=== PATIENT | male | born 1965 | race Caucasian/White ===

== ENCOUNTER 2016-11-24 20:44 | Emergency (ER) | payer SELFPAY ==
--- NOTE | 2016-11-24 21:19 | RADIOLOGY REPORT (SQ) ---
EXAM DESCRIPTION: KNEE RIGHT 4 VIEWS COMPLETED DATE/TIME: 11/24/2016 9:10 pm REASON FOR STUDY: pain, inability to bend COMPARISON: None. NUMBER OF VIEWS: Four views. TECHNIQUE: AP, lateral, and both oblique radiographic images acquired of the right knee. LIMITATIONS: None. FINDINGS: MINERALIZATION: Normal. BONES: No acute fracture or dislocation. No worrisome bone lesions. Patella [place]. JOINT: No significant joint effusion. SOFT TISSUES: Apparent thickening of the patellar tendon. OTHER: No other significant finding. IMPRESSION: PATELLA SAYRA WITH APPARENT THICKENING OF THE PATELLAR TENDON COULD BE SECONDARY TO ACUTE OR CHRONIC TEAR. CORRELATE WITH PHYSICAL EXAM. NO FRACTURE. TECHNICAL DOCUMENTATION: JOB ID: [id number] [employer]- All Rights Reserved
[2016-11-24] MEDS ORDERED: HYDROCODONE/ACETAMINOPHEN 5-325 MG 6 TAB/DSPK PO PRN (21:55)
[2016-11-24] MEDS ORDERED: HYDROCODONE/ACETAMINOPHEN 5-325 MG TABLET PO ONE (21:55)
--- NOTE | 2016-11-24 21:58 | ER Document Report ---
ED Extremity Problem, Lower - General Chief Complaint: Knee Pain Stated Complaint: KNEE PAIN Time Seen by Provider: 11/24/16 21:40 Information source: Patient - HPI Patient complains to provider of: Pain, Swelling Location: Knee Occurred: Yesterday Onset/Duration: Gradual Quality of pain: Achy Severity: Moderate Pain Level: 4 Exacerbated by: Movement Relieved by: Nothing Notes: Patient is a 51-year-old male presenting to the emergency room today complaining of right knee pain, symptoms have been going on for the past 2-3 days, he has a history of injury to this knee several years prior while playing [id number], and reports some arthritis, he denies any new injury, although at work the other day he did get a large delivery and was going up and down stairs multiple times throughout the day, symptoms started shortly thereafter, he denies any calf pain or tenderness, no numbness or tingling distally - Related Data Allergies/Adverse Reactions: No Known Allergies Allergy (Unverified 11/24/16 20:56) Past Medical History - General Information source: Patient - Social History Smoking Status: Never Smoker Family History: Reviewed & Not Pertinent Renal/ Medical History: Denies: Hx Peritoneal Dialysis Surgical Hx: Negative Review of Systems - Review of Systems Constitutional: No symptoms reported EENT: No symptoms reported Cardiovascular: No symptoms reported Respiratory: No symptoms reported Gastrointestinal: No symptoms reported Genitourinary: No symptoms reported Male Genitourinary: No symptoms reported Musculoskeletal: See HPI Skin: No symptoms reported Hematologic/Lymphatic: No symptoms reported Neurological/Psychological: No symptoms reported -: Yes All other systems reviewed and negative Physical Exam - Vital signs Vitals: Temp Pulse BP Pulse Ox 98.5 F 74 142/95 H 98 11/24/16 20:56 11/24/16 20:56 11/24/16 20:56 11/24/16 20:56 - Notes Notes: - General General appearance: Appears well, Alert In distress: None - HEENT Head: Normocephalic, Atraumatic Eyes: Normal Conjunctiva: Normal Extraocular movements intact: Yes Eyelashes: Normal Pupils: PERRL - Respiratory Respiratory status: No respiratory distress - Cardiovascular Rhythm: Regular - Abdominal Inspection: Normal - Back Back: Normal - Extremities General upper extremity: Normal inspection General lower extremity: Right knee with mild swelling anteriorly just distal to the patella, mild erythema in this area as well, no calf tenderness, negative Homans sign, distal sensation and motor is intact with 2+ DP pulses - Neurological Neuro grossly intact: Yes Orientation: AAOx4 Scottie Coma Scale Eye Opening: Spontaneous Scottie Coma Scale Verbal: Oriented Scottie Coma Scale Motor: Obeys Commands [place] Coma Scale Total: 15 - Psychological Associated symptoms: Normal affect, Normal mood - Skin Skin Temperature: Warm Skin Moisture: Dry Skin Color: Normal Course - Re-evaluation Re-evalutation: 11/24/16 22:23 Imaging findings were discussed with patient at bedside which are consistent with patella víctor, from acute or chronic patella tendon tear, patient denies any new injury, he did have a day of repetitive motion up and down stairs recently which likely irritated a chronic injury, patient was placed in a knee immobilizer and provided with crutches, as well as pain medication and information for follow-up with orthopedics, advised to return if symptoms worsen , patient acknowledges understanding and agreement with this plan - Vital Signs Vital signs: Temp Pulse Resp BP Pulse Ox 98.5 F 74 142/95 H 98 11/24/16 20:56 11/24/16 20:56 11/24/16 20:56 11/24/16 20:56 - Diagnostic Test Radiology reviewed: Image reviewed, Reports reviewed Procedures - Immobilization Right Knee Time completed: 22:24 Pre-Proc Neuro Vasc Exam: Normal Immobilizer type: Knee immobilizer Performed by: PCT Post-Proc Neuro Vasc Exam: Normal Alignment checked and good: Yes Discharge - Discharge Clinical Impression: Right knee pain Qualifiers: Chronicity: acute Qualified Code(s): M25.561 - Pain in right knee Condition: Stable Disposition: HOME, SELF-CARE Instructions: Use of Crutches ([facility]), Ice & Elevation ([facility]), Suspected Internal Knee Injury ([facility]), Knee Immobilizing Splint ([facility]), Oral Narcotic Medication ([facility] ), Sprained Knee ([facility]) Additional Instructions: Follow up with your primary care provider and an orthopedic surgeon in one to 2 days. Return to the emergency room immediately if symptoms worsen or any additional concerns. Ice and elevate the affected extremity. Limit weightbearing. Prescriptions: Hydrocodone/Acetaminophen [Hydrocodon-Acetaminophen 5-325] 1 each PO Q6 #20 tablet Forms: Return to Work Referrals: JORGITO SOLIZ DO [ACTIVE STAFF] - Follow up as needed
[2016-11-24 22:21] VITALS: BP 150/93
== END 2016-11-24 22:19 | disposition home or self-care (01) ==
LOC: ER 20:44
DX: M25.561 Pain in right knee (principal); M25.461 Effusion, right knee; L53.9 Erythematous condition, unspecified
CPT/HCPCS: 99283; 73564; L1830